=== PATIENT | female | born 2000 | race Caucasian/White ===

== ENCOUNTER 2024-06-21 12:57 | Outpatient (CLI) | payer BC ==
[2024-06-21 13:50] LABS: BASOPHILS % (AUTO) 0.4 % (0-1); EOSINOPHILS # (AUTO) 0.1 X10'3 (0-0.9); HEMATOCRIT 43.7 % (35.0-45.0); HEMOGLOBIN 14.6 g/dl (12.0-16.0); LYMPHOCYTES # (AUTO) 3.1 X10'3 (1.1-4.8); MEAN CORPUSCULAR HEMOGLOBIN 30.8 PG (27.0-31.0); MEAN CORPUSCULAR HGB CONC 33.4 g/dL (33.0-36.5); MEAN CORPUSCULAR VOLUME 92.2 FL (78-98); MEAN PLATELET VOLUME 8.1 FL (7.4-10.4); MONOCYTES # (AUTO) 0.5 X10'3 (0-0.9); MONOCYTES % (AUTO) 6.8 % (2-12); NEUTROPHILS # (AUTO) 3.2 X10'3 (1.8-7.7); NEUTROPHILS % (AUTO) 46.8 % (42-75); PLATELET COUNT 257 X10'3 (140-440); RED BLOOD COUNT 4.74 X10'6 (4.20-5.60); RED CELL DISTRIBUTION WIDTH 13.2 % (11.5-14.5); WHITE BLOOD COUNT 6.8 X10'3 (4.5-11.0)
[2024-06-21 14:02] LABS: ALANINE AMINOTRANSFERASE 26 U/L (12-78); ALBUMIN/GLOBULIN RATIO 1.1 (1.1-1.5); ALKALINE PHOSPHATASE 33 IU/L (46-116); ANION GAP 5 (8-16); ASPARTATE AMINO TRANSFERASE 15 U/L (10-37); BLOOD UREA NITROGEN 13 MG/DL (7-18); BUN/CREATININE RATIO 13.8 (10.0-20.0); CALCIUM 9.1 MG/DL (8.5-10.1); CHLORIDE 102 MMOL/L (99-107); CREATININE 0.94 MG/DL (0.40-0.90); GLUCOSE 86 MG/DL (70-104); POTASSIUM 3.8 MMOL/L (3.5-5.1); SODIUM 136 MMOL/L (135-145); TOTAL CARBON DIOXIDE 29.5 MMOL/L (24-32); TOTAL PROTEIN 7.5 G/DL (6.4-8.2); eGFR 74 ML/MIN
[2024-06-21 14:13] LABS: CHOL/HDL RATIO 2.5 (0.00-4.99); CHOLESTEROL 236 MG/DL (0-200); FREE T4 (FREE THYROXINE) 0.81 NG/DL (0.73-1.40); HDL CHOLESTEROL 94 MG/DL (35-60); LDL CHOLESTEROL 120 MG/DL (50-100); THYROID STIMULATING HORMONE 1.01 ulU/ml (0.34-4.50); TRIGLYCERIDES 52 MG/DL (20-135)
== END 2024-06-21 23:59 | disposition home or self-care (01) ==
LOC: RAD 12:57
PROVIDERS: ATTEND Nurse Practitioner
DX: Z13.220 Encounter for screening for lipoid disorders (principal); Z13.29 Encounter for screening for other suspected endocrine disorder; F41.1 Generalized anxiety disorder; F32.A Depression, unspecified; E55.9 Vitamin D deficiency, unspecified
CPT/HCPCS: 36415; 80053; 80061; 82306; 84439; 84443; 85025

== ENCOUNTER 2024-08-31 15:52 | Outpatient (CLI) | payer BC | END 2024-08-31 23:59 | disposition home or self-care (01) | LOC: RAD 15:52 | PROVIDERS: ATTEND Student in an Organized Health Care Education/Training Program | DX: N92.1 Excessive and frequent menstruation with irregular cycle (principal); N93.0 Postcoital and contact bleeding; R10.30 Lower abdominal pain, unspecified | CPT/HCPCS: 76830; 76856; 93976 ==

== ENCOUNTER 2024-09-16 12:19 | Outpatient (CLI) | payer BC ==
[2024-09-16 12:41] LABS: BASOPHILS % (AUTO) 0.4 % (0-1); EOSINOPHILS % (AUTO) 0.5 % (0-6); HEMATOCRIT 38.1 % (35.0-45.0); HEMOGLOBIN 12.9 g/dl (12.0-16.0); LYMPHOCYTES # (AUTO) 2.6 X10'3 (1.1-4.8); LYMPHOCYTES % (AUTO) 37.1 % (21-51); MEAN CORPUSCULAR HEMOGLOBIN 31.5 PG (27.0-31.0); MEAN CORPUSCULAR HGB CONC 33.8 g/dL (33.0-36.5); MONOCYTES # (AUTO) 0.4 X10'3 (0-0.9); MONOCYTES % (AUTO) 6.3 % (2-12); NEUTROPHILS # (AUTO) 3.9 X10'3 (1.8-7.7); NEUTROPHILS % (AUTO) 55.7 % (42-75); PLATELET COUNT 235 X10'3 (140-440); RED CELL DISTRIBUTION WIDTH 13.4 % (11.5-14.5); WHITE BLOOD COUNT 6.9 X10'3 (4.5-11.0)
[2024-09-16 13:13] LABS: FERRITIN 33 NG/ML (8-252)
[2024-09-16 13:32] LABS: % IRON SATURATION 21 % (11-46); IRON 69 UG/DL (49-151); TOTAL IRON BINDING CAPACITY 332 UG/DL (259-388)
== END 2024-09-16 23:59 | disposition home or self-care (01) ==
LOC: LAB 12:19
PROVIDERS: ATTEND Nurse Practitioner
DX: N92.1 Excessive and frequent menstruation with irregular cycle (principal)
CPT/HCPCS: 36415; 82728; 83540; 83550; 84466; 85025

== ENCOUNTER 2024-09-27 11:35 | Outpatient (CLI) | payer BC ==
[2024-09-27 13:57] LABS: FREE T4 (FREE THYROXINE) 0.7 NG/DL (0.73-1.40); THYROID STIMULATING HORMONE 1.64 ulU/ml (0.34-4.50)
== END 2024-09-27 23:59 | disposition home or self-care (01) ==
LOC: RAD 11:35
PROVIDERS: ATTEND Registered Nurse
DX: N92.1 Excessive and frequent menstruation with irregular cycle (principal)
CPT/HCPCS: 36415; 84439; 84443

== ENCOUNTER 2024-12-30 14:12 | Outpatient (CLI) | payer BC ==
[2024-12-30 15:50] LABS: HIV ANTIBODY 1&2 RAPID NON-REACTIVE (Neg)
== END 2024-12-30 23:59 | disposition home or self-care (01) ==
LOC: RAD 14:12
PROVIDERS: ATTEND Registered Nurse
DX: Z11.3 Encounter for screening for infections with a predominantly sexual mode of transmission (principal)
CPT/HCPCS: 36415; 86592; 86703

== ENCOUNTER 2025-01-17 16:10 | Outpatient (CLI) | payer BC ==
--- NOTE | 2025-01-17 16:51 | RADIOLOGY REPORT ---
X-ray right knee Technique: AP lateral and oblique views REASON FOR EXAM: RIGHT KNEE PAIN INDICATION: RIGHT KNEE PAIN FINDINGS: No fractures or dislocations. No erosions or periosteal reaction. Articular surfaces are sm ooth. IMPRESSION: 1. No acute bony pathology
== END 2025-01-17 23:59 | disposition home or self-care (01) ==
LOC: RAD 16:10
PROVIDERS: ATTEND Nurse Practitioner
DX: M25.561 Pain in right knee (principal)
CPT/HCPCS: 73564

== ENCOUNTER 2025-01-19 16:20 | Outpatient (CLI) | payer BC ==
--- NOTE | 2025-01-19 19:26 | RADIOLOGY REPORT ---
EXAM: MR MRI LOWER EXTREMITY RIGHT HISTORY: R KNEE PAIN COMPARISON: None TECHNIQUE: Multiplanar, multisequence imaging of the right knee was performed without contrast FINDINGS: MEDIAL COMPARTMENT: Intact medial meniscus. No focal chondrosis or subchondral edema. LATERAL COMPARTMENT: Intact lateral meniscus. No focal chondrosis or subchondral edema. PATELLOFEMORAL COMPARTMENT: No focal chondrosis or subchondral edema. Edema of the superolateral aspe ct of Hoffa's fat pad. Medial trochlear ridge hypoplasia. Subsequent lateral patellar tilt and slight lateral patellar subluxation. CRUCIATE LIGAMENTS: Intact anterior and posterior cruciate ligaments. MEDIAL SUPPORTING STRUCTURES: Intact medial collateral ligament. LATERAL SUPPORTING STRUCTURES: Intact iliotibial band, lateral capsular ligament, fibular collateral ligament, popliteus, and biceps femoris tendons EXTENSOR MECHANISM: Intact JOINT SPACE/FLUID: Trace knee joint fluid. BONES: No acute fracture, osseous contusion, or aggressive focal osseous lesion MUSCLES: Normal in signal intensity and morphology NEUROVASCULAR: Unremarkable OTHER: None IMPRESSION: 1. Patellar maltracking with lateral patellar tilt with medial trochlear hypoplasia.
== END 2025-01-19 23:59 | disposition home or self-care (01) ==
LOC: MRI02 16:20
PROVIDERS: ATTEND Nurse Practitioner
DX: S83.004A Unspecified dislocation of right patella, initial encounter (principal); M25.561 Pain in right knee; X58.XXXA Exposure to other specified factors, initial encounter; Y93.89 Activity, other specified; Y92.89 Other specified places as the place of occurrence of the external cause; Y99.8 Other external cause status
CPT/HCPCS: 73721

== ENCOUNTER 2025-03-31 15:46 | Outpatient (CLI) | payer BC ==
[2025-03-31 16:07] LABS: MEAN PLATELET VOLUME 8.1 FL (7.4-10.4); RED CELL DISTRIBUTION WIDTH 12.9 % (11.5-14.5)
[2025-03-31 16:35] LABS: CREATININE 0.95 MG/DL (0.40-0.90); TOTAL CARBON DIOXIDE 27.6 MMOL/L (24-32); eGFR 73 ML/MIN
[2025-04-02 13:12] LABS: ESTRADIOL 48.4 pg/mL (.); FSH, SERUM 7.9 mIU/mL (.); LUTEINIZING HORMONE 7.2 mIU/mL (.); PROGESTERONE 0.3 ng/mL (.); TESTOSTERONE, SERUM 40 ng/dL (13-71)
[2025-04-05 11:13] LABS: TESTOSTERONE, FREE, DIRECT 1.6 pg/mL (0.0-4.2)
== END 2025-03-31 23:59 | disposition home or self-care (01) ==
LOC: RAD 15:46
PROVIDERS: ATTEND Nurse Practitioner
DX: E34.9 Endocrine disorder, unspecified (principal); R53.83 Other fatigue
CPT/HCPCS: 36415; 80053; 82607; 82670; 82746; 83001; 83002; 84144; 84270; 84402; 84403; 84439; 84443; 85025

== ENCOUNTER 2025-06-08 12:15 | Outpatient (CLI) | payer BC ==
[2025-06-08 12:56] LABS: MEAN PLATELET VOLUME 8.2 FL (7.4-10.4); RED CELL DISTRIBUTION WIDTH 13.1 % (11.5-14.5)
== END 2025-06-08 23:59 | disposition home or self-care (01) ==
LOC: RAD 12:15
PROVIDERS: ATTEND Registered Nurse
DX: N91.4 Secondary oligomenorrhea (principal)
CPT/HCPCS: 36415; 82397; 82627; 82670; 83001; 83002; 84146; 84402; 84403; 84439; 84443; 84702; 85025